=== PATIENT | male | born 1965 | race Caucasian/White ===

== ENCOUNTER 2018-11-23 10:28 | Emergency (ER) | payer OTHER, SELFPAY ==
[2018-11-23 10:29] VITALS: BP 144/77; PULSE 89; RESP 18; TEMP 37.1; O2SAT 98; BMI 27.8
--- NOTE | 2018-11-23 10:42 | EKG12_ITS ---
Test Reason : GENERAL ILLNESS Blood Pressure : / mmHG Vent. Rate : 079 BPM Atrial Rate : 079 BPM P-R Int : 152 ms QRS Dur : 070 ms QT Int : 378 ms P-R-T Axes : 017 004 033 degrees QTc Int : 433 ms Normal sinus rhythm Normal ECG Confirmed by SURENDRA AMARAL ([id number]), video effects editor BATSHEVA FRIAS ([id number]) on 11/28/2018 10:03:46 AM Referred By: DC Confirmed By:SURENDRA AMARAL
--- NOTE | 2018-11-23 10:45 | ED.VISSUMM ---
- ER Visit Summary Date of Service: 11/23/18 Chief Complaint: Flu History of Present Illness: The patient is a 53 M who was recently diagnosed with influenza. He has been taking Tamiflu from his primary care doctor. He reports 4 days of feeling tired, upset stomach, fevers, cough with phlegm, headaches, and sweats. His symptoms are worsening, especially his headache and he is having labored breathing, and he thought he might be dehydrated. He is otherwise pretty healthy. He does not take any medications regularly. He does not smoke. Physical Examination: Afebrile and vital signs are unremarkable. Patient appears nontoxic and in no acute distress. Head and neck exams unremarkable. Neck shows good range of motion. Heart regular. Lungs clear. Extremities nontender with no edema. Skin normal in color. Test Results: Pending Emergency Department Course and Treatment: Patient had a positive influenza test. His symptoms have been worsening and he is concerned for dehydration. Patient was treated with IV fluids and Zofran. Will check for any complications of influenza??we will check EKG, chest x-ray, labs. Will reassess. Labs, EKG, chest x-ray unremarkable. Patient was having continued headache. We discussed treatment with Toradol. Patient was agreeable. We also checked a CT of his brain. CT was unremarkable. Patient's headache resolved. I do not believe he has meningitis. His exam and work-up are reassuring. Patient has influenza or influenza-like illness. Continue fluids at home. [id number] remedies for pain. Zofran as needed. Follow-up with primary care. Treatment Plan: As above Disposition: Discharge Impression: 1. Influenza-like illness 2. Dehydration This note was generated with [employer] dictation software. It may contain incorrect words, spelling, and punctuation that were not noted in review of the chart prior to signing ED Disposition - Plan for ED Patient: Referrals: Philip Chandler MD [Primary Care Provider] -
[2018-11-23] MEDS: 0.9% Normal Saline 1,000 ML 1000 ML IV ×2 (10:51→12:51)
[2018-11-23] MEDS: Ondansetron 4 MG/2 ML Vial IV (10:55)
--- NOTE | 2018-11-23 10:58 | RAD_ITS ---
STUDY: X-RAY CHEST REASON FOR EXAM: Male, 53 years old. Shortness of breath. TECHNIQUE: Single AP portable view of the chest. COMPARISON: None. FINDINGS: The lungs are clear and expanded. There is no demonstrated pleural abnormality. Normal size heart. Normal mediastinum and chelsea. Normal visualized pulmonary arteries. Normal visualized aortic arch and descending thoracic aorta. Normal visualized thoracic spine. Normal visualized ribs, clavicles, and shoulders. There is no demonstrated abnormality of the visualized soft tissue structures of the upper abdomen. RAD/Chest 1 View (Portable) IMPRESSION: Normal x-ray examination of the chest. Electronically Signed: Kashif Bernal, at 11:37 EDT , Service support ,
[2018-11-23 11:16] LABS: Absolute Lymphocyte Count 1.24 X10^3/ul (0.83-4.51); Absolute Neutrophil Count 6.6 X10^3/uL (2.0-7.7); Basophil# 0.01 X10^3/uL; Basophil% 0.1 % (0-1); Eosinophil# 0.02 X10^3/uL; Eosinophils% 0.2 % (0-5); Hematocrit 43.5 % (40-54); Lymphocyte # 1.24 X10^3/ul (4.0); Lymphocyte % 14.1 % (19-41); Mean Corp Hgb Conc 34.5 g/gl (32-36); Mean Corpuscular Hgb 31.3 pg (27.0-32.0); Mean Corpuscular Volume 90.6 fL (80-94); Mean Platelet Vol. 9.5 fl (6.2-12.0); Monocyte# 0.91 X10^3/uL; Monocyte% 10.4 % (0-10); Neutrophil # 6.59 X10^3/uL (2.7-7.7); Neutrophil % 75.1 % (47-70); POSITIVE COUNT NO; POSITIVE DIFFERENTIAL NO; POSITIVE MORPHOLOGY NO; Platelet Count 289 K/mm3 (150-450); RBC Distribution Width CV 13.3 % (11.6-14.6); RBC Distribution Width SD 44.1 fl (35.1-43.9); White Blood Count 8.8 K/mm3 (4.4-11.0)
[2018-11-23 11:23] LABS: Anion Gap 5 (5-15); BUN 12 mg/dL (7-18); BUN/Creat Ratio 10.7 RATIO (10-20); Chloride 104 mmol/L (98-107); Creatinine, Serum 1.12 mg/dL (0.70-1.30); EST Glomerular Filtration Rate 73 mL/min (>60); Est Glom Filt Rate - Afr Amer 89 mL/min (>60); Estimated Creatinine Clearance 83.11 ml/min; Glucose 106 mg/dL (74-106); Potassium 3.8 mmol/L (3.5-5.1); Sodium Level 137 mmol/L (136-145)
--- NOTE | 2018-11-23 12:14 | CT_ITS ---
STUDY: CT BRAIN WITHOUT CONTRAST REASON FOR EXAM: Male, 53 years old. Headache RADIATION DOSAGE (If Supplied By Facility): CTDIvol = ( 44.99 ) mGy, DLP = ( 863.60 ) mGycm TECHNIQUE: Transaxial CT imaging of the brain was performed without administration of intravenous contrast material. Individualized dose optimization techniques were used for this CT. COMPARISON: No relevant priors. FINDINGS: Normal soft tissue structures. Normal calvarium. Normal size ventricles and extra-axial spaces for the patient's age. Normal white matter tracts of the cerebral hemispheres. Normal basal ganglia and thalami. Normal brainstem. Normal cerebellum. There is no intracranial hemorrhage. There are no findings of an acute ischemic infarction. Normal visualized paranasal sinuses. CT/Brain/Head without Contrast IMPRESSION: Normal unenhanced CT scan of the brain. Electronically Signed: Mariama Carias, at 13:19 EDT Tel , Service support ,
[2018-11-23] MEDS: Ketorolac 30 MG/ML Syringe IV (12:51)
[2018-11-23 12:52] VITALS: BP 150/87; PULSE 81; RESP 16; O2SAT 97
--- NOTE | 2018-11-23 14:06 | ED.DEP ---
ED Disposition - Plan for ED Patient: Instructions: INFLUENZA (Adult) Prescriptions: Ondansetron [Zofran Odt] 4 mg PO Q8H PRN PRN #10 tab PRN Reason: Nausea Prescription Printed Referrals: Philip Chnadler MD [Primary Care Provider] -
[2018-11-23 14:24] VITALS: BP 141/97; PULSE 83; RESP 16; O2SAT 100
== END 2018-11-23 14:25 | disposition home or self-care (01) ==
PROVIDERS: Emergency Provider Emergency Medicine; Family Provider Family Medicine; PCP Family Medicine
DX: R50.9 Fever, unspecified (principal); R05 Cough; E86.0 Dehydration
CPT/HCPCS: 70450; 71045; 80048; 84484; 85025; 93005; 96361; 96374; 96375; 99283; J7030; J2405

== ENCOUNTER → 2023-08-21 | Outpatient (CLI) | payer BC, SELFPAY ==
--- OUTSIDE RECORDS SUMMARY | 2023-08-21 09:44 | XMS RPT_ITS | CCD ---
Author Name Unknown Address [address] [place], [place] [id number] Organization [facility] Care Team Providers Care Excavating Machine Operator Name Role Phone NON, STAFF, Primary Care Provider Unavailabl e Unavailable Unavailable Unavailable Allergies Allergy Classification Reported Allergen(s) Allergy Type Date of Onset Reaction(s) Facility (1 source) Ibuprofen Drug Allergy 01-19-2020 [facility] Medications Current Medications Medication Drug Class(es) Dates Sig (Normalized) Sig (Original) cephalexin 500 mg oral capsule (1 source) Cephalosporin Antibacterial Start: 01-19-2020 take 500 mg by mouth twice daily Cephalexin Active 500 MG Oral Twice daily 26 03January 19, 2020 6:29pm Problems Problem Classification Problem Date Documented Da te Episodic/Chronic Open wounds of extremities (1 source) Puncture wound without foreign body of right hand, initial encounter; Translations: [Puncture wound of right hand] Episodic Results Test Name Value Interpretation Reference Range Facil ity Vital Signs Date Time Vital Sign Value Performing Clinician Trav aguirre 01-19-2020 18:15-0400 BMI (Body Mass Index) 28.5 kg/m2 STAFF, [facility] 01-19-2020 18:15-0400 Body Temperature 97.9 [degF] STAFF, [facility] 01-19-2020 18:15-0400 Body weight 92.98 kg STAFF, [facility] 01-19-2020 18:15-0400 Height 180.34 cm STAFF, [facility] 01-19-2020 18:15-0400 Pulse (Heart Rate) 88 /min STAFF, [facility] 01-19-2020 18:15-0400 Pulse Oximetry 97 % STAFF, [facility] 01-19-2020 18:15-0400 Respiratory Rate 16 /min STAFF, [facility] Encounters Encounter Date Encounter Type Care Provider Facility Start: 01-19-2020 End: 01-19-2020 Emergency department patient visit STAFF, NON [facility] Plan of Treatment Date Care Activity Detail Author Patient Education Puncture Wound (ED) [facility] Patient referral [facility] Immunizations Immunization Date Immunization Notes Care Provider Mohinder calloway 01-19-2020 tetanus toxoid, redu jin diphtheria toxoid, and acellular pertussis vaccine, adsorbed STAFF, NON [facility] Payers Date Payer Category Payer Policy ID Private Health Insurance Self Pay [id number] Self-pay Self Pay [id number] Unknown Self Pay [id number] Social History Date Type Detail Facility Start: 01-19-2020 [facility] Start: 1965 Sex Assigned At Male [facility] Goals Date Patient Goal Desired Activity /State Summary Purpose Family History No Family History Records Found Advance Directives Advance Directive Response Recorded Date/ Time Advance Directives No January 19, 2020 6:45pm Chief Complaint and Reason for Visit Chief Complaint LT hand swelling/tavares n ICO Assessments No Assessments Information Available Discharge Instructions Additional Instructions Soaking hand several times a day as we discussed You can take Tylenol Motrin as needed for your discomfort Take antibiotics until gone Your first dose was given in emergency department Boostrix which is your tetanus was updated today in emergency department. Keep your wound clean and dry Apply Neosporin or bacitracin daily Have reevaluated with Actions in 1 to 2 days Return if any problems persist or worsen as we discussed Additional Source Comments (unrecognized sect ion and content) No Status Records Found INFORMATION SOURCE (unrecogn ized section and content) FOR RECORDS PERTAINING TO PATIENTS WHO ARE OR HAVE BEEN ENROLLED IN A CHEMICAL DEPENDENCY/SUBSTANCEABUSE PROGRAM, SOME INFORMATION MAY BE OMITTED. This clinical summary was aggregated from multiple sources. Caution should be exercised in using it in the provision of clinical care. This summary normalizes information from multiple sources, and as a consequence, information in this document may materially change the coding, format and clinical context of patient data. In addition, data may be omitted in some cases. CLINICAL DECISIONS SHOULD BE BASED ON THE PRIMARY CLINICAL RECORDS. [facility] [employer] [facility] provides no warranty or guarantee of the accuracy or completeness of information in this document.
[2023-08-21 10:19] LABS: Absolute Lymphocyte Count 2.04 X10^3/uL (0.83-4.51); Absolute Neutrophil Count 2.2 X10^3/uL (2.0-7.7); Basophil# 0.04 X10^3/uL; Basophil% 0.8 % (0-1); Hematocrit 48.3 % (40-54); Hemoglobin 16.8 g/dL (13.0-16.5); Lymphocyte # 2.04 X10^3/ul (0.83-4.51); Mean Corp Hgb Conc 34.8 g/dL (32-36); Mean Platelet Vol. 9.5 fl (6.2-12.0); Monocyte# 0.54 X10^3/uL; Monocyte% 10.9 % (0-10); NRBC Flagged by Analyzer 0 % (0-5); Neutrophil # 2.24 X10^3/uL (2.7-7.7); Neutrophil % 45.1 % (47-70); Platelet Count 336 K/mm3 (150-450); RBC Distribution Width CV 12.4 % (11.6-14.6); RBC Distribution Width SD 42.4 fl (35.1-43.9); Red Blood Count 5.25 M/mm3 (4.6-6.2)
[2023-08-21 10:56] LABS: AST(SGOT) 32 U/L (15-37); Alanine Aminotransfer ALT/SGPT 72 U/L (16-61); Albumin, Serum 3.6 g/dL (3.2-5.0); Alkaline Phosphatase 56 U/L (45-117); Anion Gap 5 (5-15); BUN 18 mg/dL (7-18); BUN/Creat Ratio 13.8 RATIO (10-20); Calcium,Total 8.8 mg/dL (8.5-10.1); Chloride 110 mmol/L (98-107); Cholesterol 304 mg/dL (200); EST Glomerular Filtration Rate 61 mL/min (>60); Est Glom Filt Rate - Afr Amer 73 mL/min (>60); Globulin 3.6 g/dL (2.2-4.2); Glucose 103 mg/dL (74-106); High Density Lipoprotein 68 mg/dL; PSA,Total - Annual Screen 0.91 ng/mL (0.00-4.00); Potassium 4.5 mmol/L (3.5-5.1); Protein, Total 7.2 g/dL (6.4-8.2); Sodium Level 139 mmol/L (136-145); Triglycerides 114 mg/dL; Very Low Density Lipoprotein 23 mg/dL (5-40)
== END | disposition home or self-care (01) ==
PROVIDERS: PCP Family Medicine; Referring Provider Family Medicine; Visit Provider Family Medicine
DX: Z13.1 Encounter for screening for diabetes mellitus (principal); E78.5 Hyperlipidemia, unspecified; Z12.5 Encounter for screening for malignant neoplasm of prostate; Z12.11 Encounter for screening for malignant neoplasm of colon
CPT/HCPCS: 36415; 80053; 80061; 84153; 85025; G0103